=== PATIENT | male | born 1970 | race Two or more races ===

== ENCOUNTER 2019-10-30 06:00 | Day surgery (SDC) | payer OTHER ==
[~2019-10-30 06:00] MED LIST: ADULT LOW DOSE81 M1 PO; FORTAMET1000 MG PO; LIPI PO; ZESTRIL10 M1 PO; [UNRECOGNIZED DRUG - OTHER] PO
[2019-10-30] MEDS ORDERED: PERCOCET 5-3251 EACH PO (16:20)
[2019-10-30] MEDS ORDERED: DUI500 PO (16:20)
[2019-10-30] MEDS ORDERED: ALEVE220 M1 PO (16:20)
== END 2019-10-30 18:40 | disposition home or self-care (01) ==
LOC: CIR.AMB 06:00 → EDSTATUS 07:00 → SURG 07:00 → CIR.AMB 07:00
DX: M86.362 Chronic multifocal osteomyelitis, left tibia and fibula (principal)

== ENCOUNTER 2019-11-12 19:22 | Emergency (ER) | payer OTHER ==
[~2019-11-12] VITALS: Ht 162.6 cm; Wt 88.5 kg
[~2019-11-12 19:22] MED LIST changes: +ALEVE220 M1 PO; +DUI500 PO; +PERCOCET 5-3251 EACH PO
== END 2019-11-12 22:10 | disposition home or self-care (01) ==
LOC: ER 19:22
DX: T81.49XA Infection following a procedure, other surgical site, initial encounter (principal)

== ENCOUNTER 2021-03-10 08:22 | Emergency (ER) | payer OTHER ==
[~2021-03-10] VITALS: Ht 162.6 cm; Wt 88.5 kg
== END 2021-03-10 12:50 | disposition home or self-care (01) ==
LOC: ER 08:22
DX: U07.1 COVID-19 (principal); B34.9 Viral infection, unspecified

== ENCOUNTER → 2021-03-10 | Outpatient (CLI) | payer OTHER | END | disposition home or self-care (01) | LOC: ASH CLINIC 12:00 | PROVIDERS: ATTEND General Practice | DX: Z23 Encounter for immunization (principal); U07.1 COVID-19 ==